=== PATIENT | male | born 1965 | race Caucasian/White ===

== ENCOUNTER 2020-12-16 12:03 | Emergency (ER) | payer MEDICAID ==
[~2020-12-16] VITALS: Ht 167.6 cm; Wt 95.3 kg
[2020-12-16 12:24] VITALS: Ht 167.6 cm; Wt 95.3 kg
[2020-12-16] MEDS ORDERED: NOR10T PO (15:47)
[2020-12-16 15:58] VITALS: BP 162/90
== END 2020-12-16 15:58 | disposition home or self-care (01) ==
LOC: ED 12:03
DX: M25.561 Pain in right knee (principal); I10 Essential (primary) hypertension